=== PATIENT | female | born 1975 | race American Indian/Alaskan Native ===

== ENCOUNTER 2016-06-23 17:38 | Inpatient (IN) | payer BC ==
--- NOTE | 2016-06-23 19:10 | ED PDOC ---
HPI: General Adult Time Seen by Provider: 06/23/16 18:19 Chief Complaint (Nursing): Abnormal Labs Chief Complaint (Provider): abnormal labs History Per: Patient History/Exam Limitations: no limitations Onset/Duration Of Symptoms: Unknown Have you had recent travel within the past 21 days to any of the following countries: [place], [place], [place] or [place]?: No Recently: Treated By A Physician Additional Complaint(s): Neeta Laurent is a 41 year old female, with a previous medical history of anemia and fibroids, who presents to the ED as per PMD after abnormal routine lab results. Pt states labs indicated a hemoglobin of 5 and platelet count of 19. Pt reports no symptoms. Pt denies any chest pain, shortness of breath, dizziness, light headedness, dyspnea on exertion, fainting, near fainting, bleeding or bruising. Pt states menstrual cycles are normally heavy due to her fibroids. Pt was admitted in February of 2015 for anemia and given a blood transfusion. 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 Pt denies any active medical complaints at this time. PMD: [facility] Past Medical History Reviewed: Historical Data, Nursing Documentation, Vital Signs Vital Signs: Last Vital Signs Temp 98.1 F 06/26/16 20:37 Pulse 80 06/26/16 21:00 Resp 18 06/26/16 20:37 BP 116/71 06/26/16 20:37 Pulse Ox 99 06/26/16 20:37 - Medical History PMH: Anemia, Hyperthyroidism (not on meds) - Family History Family History: States: Unknown Family Hx - Allergies Allergies/Adverse Reactions: Allergies Allergy/AdvReac Type Severity Reaction Status Date / Time No Known Allergies Allergy Verified 03/02/15 13:36 Review of Systems ROS Statement: Except As Marked, All Systems Reviewed And Found Negative (no active medical complaints) Constitutional: Negative for: Other (fainting, bleeding, bruising ) Cardiovascular: Negative for: Chest Pain Respiratory: Negative for: Shortness of Breath Neurological: Negative for: Dizziness Physical Exam - Reviewed Nursing Documentation Reviewed: Yes Vital Signs Reviewed: Yes - Physical Exam Appears: Positive for: Well, Non-toxic, No Acute Distress Head Exam: Positive for: ATRAUMATIC, NORMAL INSPECTION, NORMOCEPHALIC Skin: Positive for: Warm, Dry, Pallor (mild) Eye Exam: Positive for: EOMI, PERRL, Other (pale conjunctiva ) ENT: Positive for: Normal ENT Inspection Neck: Positive for: Normal, Painless ROM Cardiovascular/Chest: Positive for: Regular Rate, Rhythm, Tachycardia Respiratory: Positive for: CNT, Normal Breath Sounds Gastrointestinal/Abdominal: Positive for: Normal Exam, Bowel Sounds, Soft Back: Positive for: Normal Inspection Extremity: Positive for: Normal ROM Neurologic/Psych: Positive for: Alert, Oriented - Laboratory Results Result Diagrams: 06/26/16 06:15 06/24/16 06:35 - ECG O2 Sat by Pulse Oximetry: 99 (RA) Pulse Ox Interpretation: Normal Medical Decision Making Medical Decision Making: Initial Impression: Anemia Initial plan: * crossmatch * type and screen * EKG * labs * ferritin * iron and TIBC * urine * urine dipstick * partil thromboplastin time * prothrombin time * CXR * environmental monitoring specialist continuous * reevaluation 1900 Labs c/w severe anemia and thrombocytopenia. NENO pt findings and risks/benefits of transfusion. Consent signed. NENO [facility]ar Hem/Onc. No platelet transfusion at this time (no bleeding/bruising) Scribe Attestation: Documented by Shahida Andrade, acting as a scribe for Carissa Delong MD Provider Scribe Attestation: All medical record entries made by the Scribe were at my direction and personally dictated by me. I have reviewed the chart and agree that the record accurately reflects my personal performance of the history, physical exam, medical decision making, and the department course for this patient. I have also personally directed, reviewed, and agree with the discharge instructions and disposition. Disposition - Clinical Impression Clinical Impression: Severe anemia, Severe thrombocytopenia Discussed With DrTeagan: Quyen Mares Doctor Will See Patient In The: Hospital Counseled Patient/Family Regarding: Studies Performed, Diagnosis - Disposition Disposition Time: 19:00 Condition: GUARDED - Pt Status Changed To: Hospital Disposition Of: Inpatient - Admit Certification Admit to Inpatient:: After my assessment, the patient will require hospitalization for at least two midnights. This is because of the severity of symptoms shown, intensity of services needed, and/or the medical risk in this patient being treated as an outpatient. - POA Present On Arrival: None
[2016-06-23 19:24] LABS: BASO # 0.1 K/uL (0.0-0.2); BASO % 0.6 % (0.0-2.0); EOS # 0.1 K/uL (0.0-0.7); EOS % 1.1 % (0.0-4.0); HEMATOCRIT 20.4 % (34.0-47.0); LYMPH # 3.3 K/uL (1.0-4.3); LYMPH % 32.4 % (20.0-40.0); MEAN CELL VOLUME 58.8 fl (81.0-99.0); MEAN CORPUSCULAR HGB CONC 25.6 g/dL (33.0-37.0); MEAN PLATELET VOLUME 11.1 fl (7.2-11.7); MONO # 0.4 K/uL (0.0-0.8); MONO % 3.9 % (0.0-10.0); NEUT # 6.3 K/uL (1.8-7.0); NRBC % 0.2 % (0.0-0.0); RED CELL DISTRIBUTION WIDTH 33.4 % (11.5-14.5); WHITE BLOOD COUNT 10.2 K/uL (4.8-10.8)
[2016-06-23 19:33] LABS: PARTIAL THROMBOPLASTIN TIME 22.4 SECONDS (23.3-32.5)
[2016-06-23 19:39] LABS: IRON 28 ug/dL (37-170)
[2016-06-23 19:41] LABS: ALB/GLOB RATIO 1.1 (1.0-2.1); ALKALINE PHOSPHATASE 81 U/L (38-126); ALT/SGPT 36 U/L (9-52); AST/SGOT 25 U/L (14-36); BILIRUBIN,TOTAL 0.8 mg/dl (0.2-1.3); BLOOD UREA NITROGEN 9 mg/dl (7-17); CALCIUM 10.1 mg/dL (8.4-10.2); CARBON DIOXIDE 24 mmol/L (22-30); CHLORIDE 106 mmol/L (98-107); GFR AFRICAN-AMERICAN > 60; GLUCOSE,RANDOM 101 mg/dL (65-105); POTASSIUM 3.8 MMOL/L (3.6-5.0); SODIUM 143 mmol/l (132-148); TOTAL PROTEIN 8.4 G/DL (6.3-8.2)
[2016-06-23 20:07] LABS: RBC URINE 1 /hpf (0-3); URINE BACTERIA FEW (<OCC); URINE BILIRUBIN NEGATIVE (NEGATIVE); URINE BLOOD NEGATIVE (NEGATIVE); URINE COLOR YELLOW (YELLOW); URINE GLUCOSE (UA) NEG (Normal); URINE KETONE TRACE mg/dL (NEGATIVE); URINE LEUKOCYTE ESTERASE SMALL Leu/uL (Negative); URINE PROTEIN 30 mg/dL (NEGATIVE); URINE UROBILINOGEN 0.2-1.0 mg/dL (0.2-1.0); WBC URINE 3 /hpf (0-5)
--- NOTE | 2016-06-23 22:25 | CP.PCM.HP ---
History of Present Illness - History of Present Illness History of Present Illness: CC: Referred by her PMD to the ER for Abnormal Labs (Hgb 5.0mg/dl and PLT [id number]) History of Present Illness: A 41 year old female, with a previous medical history of Severe Iron deficiency anemia to Hgb 3.3 and fibroids, who presents to the ED as per PMD after abnormal routine lab results. Pat. states labs indicated a hemoglobin of 5 and platelet count of 19. Pat. reports no symptoms. Pat. denies any chest pain, shortness of breath, dizziness, light headedness, dyspnea on exertion, fainting , near fainting, bleeding or bruising. Pt states menstrual cycles are normally heavy due to her fibroids. Pat. was admitted in February of 2015 for anemia and given a blood transfusion. Pat. 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 Pat. denies any active medical complaints at this time. Admits using Ibuprofen. Present on Admission - Present on Admission Any Indicators Present on Admission: No History of DVT/PE: No History of Uncontrolled Diabetes: No Urinary Catheter: No Decubitus Ulcer Present: No Review of Systems - Review of Systems All systems: reviewed and no additional remarkable complaints except - Constitutional Constitutional: absent: Fatigue - Genitourinary Genitourinary: As Per HPI Past Patient History - Infectious Disease Hx of Infectious Diseases: None - Past Medical History & Family History Past Medical History?: Yes Past Family History: Reviewed and not pertinent - Past Social History Smoking Status: Never Smoked Alcohol: None Drugs: Denies - CARDIAC Hx Cardiac Disorders: No - PULMONARY Hx Respiratory Disorders: No - NEUROLOGICAL Hx Neurological Disorder: Yes Hx Dizziness: Yes - ENDOCRINE/METABOLIC Hx Hyperthyroidism: Yes (Not on meds) - HEMATOLOGICAL/ONCOLOGICAL Hx Anemia: Yes - MUSCULOSKELETAL/RHEUMATOLOGICAL Hx Musculoskeletal Disorders: No Hx Falls: No - GASTROINTESTINAL Hx Gastrointestinal Disorders: No - PSYCHIATRIC Hx Psychophysiologic Disorder: No Hx Substance Use: No - SURGICAL HISTORY Hx Surgeries: No - ANESTHESIA Hx Anesthesia: No Meds Allergies/Adverse Reactions: Allergies Allergy/AdvReac Type Severity Reaction Status Date / Time No Known Allergies Allergy Verified 03/02/15 13:36 Physical Exam - Constitutional Appears: Well, No Acute Distress - Head Exam Head Exam: ATRAUMATIC, NORMAL INSPECTION, NORMOCEPHALIC - Eye Exam Eye Exam: EOMI, Normal appearance, PERRL Pupil Exam: NORMAL ACCOMODATION, PERRL - ENT Exam ENT Exam: Mucous Membranes Moist, Normal Exam - Neck Exam Neck exam: Positive for: Full Rom, Normal Inspection - Respiratory Exam Respiratory Exam: Clear to Auscultation Bilateral, NORMAL BREATHING PATTERN - Cardiovascular Exam Cardiovascular Exam: REGULAR RHYTHM, +S1, +S2 - GI/Abdominal Exam GI & Abdominal Exam: Normal Bowel Sounds, Soft. absent: Tenderness - Extremities Exam Extremities exam: Positive for: full ROM, normal capillary refill, normal inspection - Back Exam Back exam: FULL ROM, NORMAL INSPECTION. absent: CVA tenderness (L), CVA tenderness (R) - Neurological Exam Neurological exam: Alert, CN II-XII Intact, Normal Gait, Oriented x3, Reflexes Normal - Psychiatric Exam Psychiatric exam: Normal Affect, Normal Mood - Skin Skin Exam: Dry, Intact, Normal Color, Warm Results - Vital Signs Recent Vital Signs: Last Vital Signs Temp 99.7 F H 06/23/16 18:15 Pulse 98 H 06/23/16 21:00 Resp 20 06/23/16 21:00 BP 167/77 H 06/23/16 21:00 Pulse Ox 100 06/23/16 21:00 - Labs Result Diagrams: 06/24/16 10:20 06/24/16 06:35 Labs: Laboratory Results - last 24 hr 06/23/16 21:13 Retic Count 1.8 H D - EKG Data EKG Interpreted by: Other EKG shows normal: Sinus rhythm, [place], Intervals, QRS complexes, ST-T waves Rate: Normal - Imaging and Cardiology Chest x-ray Status: Report reviewed by me Additional comment: No Active Disease. Assessment & Plan (1) Severe anemia Assessment and Plan: Thrombocytopenia' H/O Fibroid Recurrent Coags= Normal study Transfuse 2 Units PRBCs Anemia Work Up FOB Vish Carpet Inspector Consult Status: Acute Priority: High
[2016-06-23] MEDS: Sodium Chloride 0.9% 1,000 ML IV SCH (22:43)
[2016-06-24 07:25] LABS: ALB/GLOB RATIO 1.1 (1.0-2.1); ALKALINE PHOSPHATASE 68 U/L (38-126); ALT/SGPT 35 U/L (9-52); AST/SGOT 24 U/L (14-36); BILIRUBIN,TOTAL 3.1 mg/dl (0.2-1.3); BLOOD UREA NITROGEN 12 mg/dl (7-17); CALCIUM 9.9 mg/dL (8.4-10.2); CARBON DIOXIDE 25 mmol/L (22-30); CHLORIDE 109 mmol/L (98-107); GFR AFRICAN-AMERICAN > 60; GLUCOSE,RANDOM 90 mg/dL (65-105); POTASSIUM 4.1 MMOL/L (3.6-5.0); SODIUM 145 mmol/l (132-148); TOTAL PROTEIN 7.4 G/DL (6.3-8.2)
[2016-06-24 07:31] LABS: HEMATOCRIT 23.9 % (34.0-47.0); MEAN CELL VOLUME 64.7 fl (81.0-99.0); MEAN CORPUSCULAR HEMOGLOBIN 18.4 pg (27.0-31.0); MEAN CORPUSCULAR HGB CONC 28.5 g/dL (33.0-37.0); RED CELL DISTRIBUTION WIDTH 39.9 % (11.5-14.5); WHITE BLOOD COUNT 10.7 K/uL (4.8-10.8)
--- NOTE | 2016-06-24 07:57 | CARD ---
APPROVED REPORT EKG Measurement Heart [id number] <Conclusion> Normal sinus rhythm Normal ECG
[2016-06-24] MEDS ORDERED: Lidocaine 2% Inj (20ml) SC ONE (09:02)
[2016-06-24] MEDS: Pantoprazole 40 mg EC Tab PO SCH (09:20)
[2016-06-24] MEDS: Sodium Chloride 0.9% 1,000 ML IV SCH ×2 (09:23→20:59)
--- NOTE | 2016-06-24 09:28 | RAD ---
HISTORY: anemia COMPARISON: Comparison chest dated 03/03/2015. FINDINGS: LUNGS: No active pulmonary disease. PLEURA: No significant pleural effusion identified, no pneumothorax apparent. CARDIOVASCULAR: Normal. OSSEOUS STRUCTURES: No significant abnormalities. VISUALIZED UPPER ABDOMEN: Normal. OTHER FINDINGS: None. IMPRESSION: No active disease.
--- NOTE | 2016-06-24 09:55 | CP.PCM.CON ---
History of Present Illness - History of Present Illness History of Present Illness: This is a 41 yrs old female who was admitted with c/o low hgb 5.3 and low platelet count 22K.. She had no symptoms of dizziness or headaches, no shortness of breath, She has a h/o fibroids, and in the past has been admitted for severe anemia. She was transfused, but did not see the CLASSIFIER OPERATOR. Now she comes in with severe thrombocytopenia well. The last 2 admissions the platelets were elevated probably from the bleeding. No bleeding from any other site other than the heavy periods.. She has no other medical problems. Has not taken any medicine that can lower the platelets. She was worked upm for hemolysis last admission, but was negative. Her SPE showed a spike in one immunoglobulin but the others were normal. Her renal function is normal. She has a small nodule on her thyroid and she has a prescription for a thyroid ultrasound. Past Patient History - Past Medical History & Family History Past Medical History?: Yes - Past Social History Smoking Status: Never Smoked - CARDIAC Hx Cardiac Disorders: No Hx Heart Murmur: Yes Other/Comment: Pt was recently informed that she has heart murmur. Pt. aware she had murmur since childhood but 06/22/16 her PMD stated she had one. - PULMONARY Hx Respiratory Disorders: No - NEUROLOGICAL Hx Neurological Disorder: Yes Hx Dizziness: Yes (Found this was due to low Hgb.) - RENAL Hx Chronic Kidney Disease: No Other/Comment: Pt. aware she does not hydrate enough. - ENDOCRINE/METABOLIC Hx Hypothyroidism: Yes (Pt. has a sonogram referral from PMD to check thyroid gland) - HEMATOLOGICAL/ONCOLOGICAL Hx Blood Disorders: Yes Hx AIDS: No Hx Anemia: Yes (Diagnosed past 2 years) Hx Blood Transfusions: Yes Hx Human Immunodeficiency Virus (HIV): No - INTEGUMENTARY Hx Dermatological Problems: No - MUSCULOSKELETAL/RHEUMATOLOGICAL Hx Musculoskeletal Disorders: No Hx Falls: No - GASTROINTESTINAL Hx Gastrointestinal Disorders: No - GENITOURINARY/GYNECOLOGICAL Hx Genitourinary Disorders: No - PSYCHIATRIC Hx Psychophysiologic Disorder: No Hx Substance Use: No - SURGICAL HISTORY Hx Surgeries: No - ANESTHESIA Hx Anesthesia: No Hx Anesthesia Reactions: No Hx Malignant Hyperthermia: No Meds Allergies/Adverse Reactions: Allergies Allergy/AdvReac Type Severity Reaction Status Date / Time No Known Allergies Allergy Verified 03/02/15 13:36 - Medications Medications: Current Medications Sodium Chloride (Sodium Chloride 0.9%) 1,000 mls @ 100 mls/hr IV .Q10H MALIK Stop: 06/24/16 22:16 Last Admin: 06/24/16 09:23 Dose: 100 mls/hr Pantoprazole Sodium (Protonix Ec Tab) 40 mg PO DAILY MALIK Last Admin: 06/24/16 09:20 Dose: 40 mg Physical Exam - Additional Findings Additional findings: Physical exam; Alert, well oriented, very pleasant female. neck; Supple, no adenopathy, there is however a small nodule on the right lobe of the thyroid Chest; Clear, no rales or rhonchi Heart; RSR, no murmur Abd; Soft, no mass, no h/s megaly Results - Vital Signs Recent Vital Signs: Last Vital Signs Temp 97.9 F 06/24/16 08:32 Pulse 90 06/24/16 08:32 Resp 20 06/24/16 08:32 BP 106/68 06/24/16 08:32 Pulse Ox 100 06/24/16 08:32 - Labs Result Diagrams: 06/24/16 06:35 06/24/16 06:35 Labs: Laboratory Results - last 24 hr 06/23/16 06/23/16 06/24/16 20:02 21:13 00:30 WBC RBC Hgb Hct MCV MCH MCHC RDW Plt Count Retic Count 1.8 H D Sodium Potassium Chloride Carbon Dioxide Anion Gap BUN Creatinine Est GFR ( Amer) Est GFR (Non-Af Amer) Random Glucose Calcium Total Bilirubin AST ALT Alkaline Phosphatase Lactate Dehydrogenase 375 Total Protein Albumin Globulin Albumin/Globulin Ratio Vitamin B12 663 YURI, Poly Interpret Negative 06/24/16 06:35 WBC 10.7 RBC 3.69 L Hgb 6.8 L Hct 23.9 L MCV 64.7 L D MCH 18.4 L MCHC 28.5 L RDW 39.9 H Plt Count 18 L* Retic Count Sodium 145 Potassium 4.1 Chloride 109 H Carbon Dioxide 25 Anion Gap 15 BUN 12 Creatinine 0.6 L Est GFR ( Amer) > 60 Est GFR (Non-Af Amer) > 60 Random Glucose 90 Calcium 9.9 Total Bilirubin 3.1 H AST 24 ALT 35 Alkaline Phosphatase 68 Lactate Dehydrogenase Total Protein 7.4 Albumin 3.9 Globulin 3.5 Albumin/Globulin Ratio 1.1 Vitamin B12 YURI, Poly Interpret Assessment & Plan - Assessment and Plan (Free Text) Assessment: Impression; Anemia secondary to fibroids and excessive uterine bleeding. Thrombocytopenia Etiology to be determined. ? immune thrombocytopenia Plan: Plan',Will do a bone marrow today to see if there is a bone marrow problem. Transfuse as needed. Since she is not bleeding or have ecchymosis, will hold off platelet transfusion. - Date & Time Date: 06/24/16 Time: 10:21
[2016-06-24 10:38] LABS: HEMATOCRIT 23.7 % (34.0-47.0)
[2016-06-24 13:31] LABS: FOLATE 10.4 ng/mL
--- NOTE | 2016-06-25 00:39 | CP.PCM.PN ---
Subjective - Date & Time of Evaluation Date of Evaluation: 06/24/16 Time of Evaluation: 22:30 Objective - Vital Signs/Intake and Output Vital Signs (last 24 hours): Temp Pulse Resp BP Pulse Ox 98.6 F 90 18 104/66 100 06/25/16 00:17 06/25/16 00:17 06/25/16 00:17 06/25/16 00:17 06/25/16 00:17 - Medications Medications: Current Medications Pantoprazole Sodium (Protonix Ec Tab) 40 mg PO DAILY MALIK Last Admin: 06/24/16 09:20 Dose: 40 mg - Labs Labs: 06/24/16 10:20 06/24/16 06:35 PT 10.2 SECONDS (9.6-11.2) 06/23/16 19:00 INR 0.98 (0.92-1.08) 06/23/16 19:00 APTT 22.4 SECONDS (23.3-32.5) L 06/23/16 19:00 Assessment and Plan (1) Severe anemia Status: Acute
[2016-06-25 07:14] LABS: HEMATOCRIT 24.3 % (34.0-47.0); MEAN CELL VOLUME 65.3 fl (81.0-99.0); MEAN CORPUSCULAR HGB CONC 27.5 g/dL (33.0-37.0); RED CELL DISTRIBUTION WIDTH 40.3 % (11.5-14.5); WHITE BLOOD COUNT 11.7 K/uL (4.8-10.8)
[2016-06-25] MEDS: Pantoprazole 40 mg EC Tab PO SCH (09:10)
--- NOTE | 2016-06-25 11:42 | CP.PCM.PN ---
Subjective - Date & Time of Evaluation Date of Evaluation: 06/25/16 Time of Evaluation: 11:38 - Subjective Subjective: Pt had no side effects from the bone marrow done yesterday.The marrow unfortunately was stained very badly. However it is a very cellular marrow, with plenty of megakaryocytes, and erythroid hyperplasia. Awaiting the flow cytometry. She has no complaints today. Her hgb is only 6.7gms. Will transfuse 2 more units of packed cells. Her platelets have increased to 38K. Will follow. Objective - Vital Signs/Intake and Output Vital Signs (last 24 hours): Temp Pulse Resp BP Pulse Ox 97.8 F 80 18 107/70 99 06/25/16 08:00 06/25/16 09:00 06/25/16 08:00 06/25/16 08:00 06/25/16 08:00 - Medications Medications: Current Medications Pantoprazole Sodium (Protonix Ec Tab) 40 mg PO DAILY MALIK Last Admin: 06/25/16 09:10 Dose: 40 mg - Labs Labs: 06/25/16 06:00 06/24/16 06:35 PT 10.2 SECONDS (9.6-11.2) 06/23/16 19:00 INR 0.98 (0.92-1.08) 06/23/16 19:00 APTT 22.4 SECONDS (23.3-32.5) L 06/23/16 19:00
[2016-06-25 22:18] LABS: HEMATOCRIT 28.9 % (34.0-47.0)
--- NOTE | 2016-06-26 00:16 | CP.PCM.PN ---
Subjective - Date & Time of Evaluation Date of Evaluation: 06/25/16 Time of Evaluation: 18:20 - Subjective Subjective: Seen and Examined at the bed side. Despite Transfusion of 2Units of PRBCs, Hgb stayed about 6.8mg/dl, and will get 2 more units of PRBCs today. Denies any new symptoms. Her PLT count improved today from lowest 18K to 38K today. Awaiting Bone marrow final result but as per the Rn Operating Room note, bone marrow is Hypercellular and lot of Megakaryocytes are seen. Objective - Vital Signs/Intake and Output Vital Signs (last 24 hours): Temp Pulse Resp BP Pulse Ox 99.3 F 83 18 131/84 100 06/25/16 21:00 06/25/16 21:00 06/25/16 21:00 06/25/16 21:00 06/25/16 18:50 - Medications Medications: Current Medications Pantoprazole Sodium (Protonix Ec Tab) 40 mg PO DAILY MALIK Last Admin: 06/25/16 09:10 Dose: 40 mg - Labs Labs: 06/25/16 20:45 06/24/16 06:35 PT 10.2 SECONDS (9.6-11.2) 06/23/16 19:00 INR 0.98 (0.92-1.08) 06/23/16 19:00 APTT 22.4 SECONDS (23.3-32.5) L 06/23/16 19:00 - Constitutional Appears: Well, No Acute Distress - Head Exam Head Exam: ATRAUMATIC, NORMAL INSPECTION, NORMOCEPHALIC - Eye Exam Eye Exam: EOMI, Normal appearance, PERRL Pupil Exam: NORMAL ACCOMODATION, PERRL - ENT Exam ENT Exam: Mucous Membranes Moist, Normal Exam - Neck Exam Neck Exam: Full ROM, Normal Inspection. absent: Lymphadenopathy - Respiratory Exam Respiratory Exam: Clear to Ausculation Bilateral, NORMAL BREATHING PATTERN - Cardiovascular Exam Cardiovascular Exam: REGULAR RHYTHM, +S1, +S2. absent: Murmur - GI/Abdominal Exam GI & Abdominal Exam: Soft, Normal Bowel Sounds. absent: Tenderness - Extremities Exam Extremities Exam: Full ROM, Normal Capillary Refill, Normal Inspection. absent : Joint Swelling, Pedal Edema - Back Exam Back Exam: NORMAL INSPECTION - Neurological Exam Neurological Exam: Alert, Awake, CN II-XII Intact, Normal Gait, Oriented x3 - Psychiatric Exam Psychiatric exam: Normal Affect, Normal Mood - Skin Skin Exam: Dry, Intact, Normal Color, Warm Assessment and Plan (1) Severe anemia Assessment & Plan: with Severe Thrombocytopenia . No Active Bleed S/P 2 Units of PRBCs Transfusion Bone Marrow Biopsy Monitor CBC Anemia Work up in Progress Rn Operating Room on Board Pantoprazole 40mg PO Daily Status: Acute
[2016-06-26 06:22] LABS: TOTAL PROTEIN, SERUM 6.8 g/dL (6.1-8.1)
[2016-06-26] MEDS: Pantoprazole 40 mg EC Tab PO SCH (08:24)
[2016-06-26 08:57] LABS: BASO % 0.4 % (0.0-2.0); EOS # 0.1 K/uL (0.0-0.7); EOS % 1.1 % (0.0-4.0); HEMATOCRIT 30.4 % (34.0-47.0); LYMPH % 16.2 % (20.0-40.0); MEAN CELL VOLUME 69.1 fl (81.0-99.0); MEAN CORPUSCULAR HEMOGLOBIN 20.1 pg (27.0-31.0); MEAN CORPUSCULAR HGB CONC 29.1 g/dL (33.0-37.0); MEAN PLATELET VOLUME 10.3 fl (7.2-11.7); MONO % 8.2 % (0.0-10.0); NEUT # 9.1 K/uL (1.8-7.0); NEUT % 74.1 % (50.0-75.0); NRBC % 0.2 % (0.0-0.0); RED CELL DISTRIBUTION WIDTH 40.3 % (11.5-14.5); WHITE BLOOD COUNT 12.2 K/uL (4.8-10.8)
[2016-06-26 20:39] VITALS: BP 116/71; PULSE 80; RESP 18; TEMP 98.1; O2SAT 99
[2016-06-27 18:12] LABS: IGG,SERUM 1736 mg/dL (694-1618); IGM,SERUM 118 mg/dL (48-271)
[2016-06-27 19:02] LABS: BETA 1 GLOBULIN 0.5 g/dL (0.4-0.6); BETA 2 GLOBULIN 0.3 g/dL (0.2-0.5); GAMMA GLOBULIN 1.5 g/dL (0.8-1.7)
== END 2016-06-26 21:15 | disposition home or self-care (01) | DRG 760 ==
LOC: H.ER 17:38 → H.ERHOLD 19:57 → H.TEL 21:50
PROVIDERS: ADMIT Internal Medicine; ATTEND Internal Medicine
PROC: 30233N1 Transfusion of Nonautologous Red Blood Cells into Peripheral Vein, Percutaneous Approach (ICD-10-PCS; principal; 2016-06-23)
PROC: 07DQ3ZX Extraction of Sternum Bone Marrow, Percutaneous Approach, Diagnostic (ICD-10-PCS; 2016-06-24)
DX: D25.9 Leiomyoma of uterus, unspecified (principal); D69.3 Immune thrombocytopenic purpura; D64.9 Anemia, unspecified; N92.0 Excessive and frequent menstruation with regular cycle; E03.9 Hypothyroidism, unspecified